=== PATIENT | male | born 1960 | race Caucasian/White ===

== ENCOUNTER 2017-02-05 09:23 | Day surgery (SDC) | payer OTHER ==
[2017-02-04 13:13] VITALS: BMI 33.7
[2017-02-05 11:19] VITALS: TEMP 98.2
[2017-02-05 13:20] VITALS: BP 130/60; PULSE 60
--- NOTE | 2017-02-06 13:44 | PATH ---
Surgical Pathology Report Patient Name: TAMIA BAILEY [facility]. Rec. #: [id number] /Age/Gender: 1960 (Age: 56) / M Account: [id number] Location: U-ENDOSCOPY Taken: 02/05/2017 Received: 02/05/2017 Reported: 02/06/2017 Physicians: Jakob Macdonald M.D. Specimen(s) Received A: BX CECAL POLYP B: BX CECUM C: BX PROXIMAL DESCENDING COLON POLYP Clinical History History of colon cancer, colon polyp, diarrhea Polyps, rule out microscopic colitis Final Diagnosis A. COLON, CECUM, POLYP, BIOPSY: FRAGMENTS OF TUBULAR ADENOMA. B. COLON, CECUM, BIOPSY: COLONIC MUCOSA WITH REACTIVE LYMPHOID AGGREGATE. NO EVIDENCE OF ACTIVE INFLAMMATION, SIGINIFICANT ARCHITECTURAL DISTORTION, GRANULOMATA OR DYSPLASIA; NO EVIDENCE OF MICROSCOPIC COLITIS. C. COLON, PROXIMAL DESCENDING, POLYP, BIOPSY: HYPERPLASTIC-TYPE POLYP WITH FOCAL FEATURES SUGGESTIVE OF SESSILE SERRATED ADENOMA. Electronically Signed [place] M.D. Gross Description A. Received in formalin, labeled "biopsy cecal polyp" are 4 baldwin, irregular portions of soft tissue ranging from 0.1-0.2 cm in greatest dimension. The specimens are submitted in toto in one cassette. B. Received in formalin, labeled "biopsy cecum" are 3 baldwin, irregular portions of soft tissue ranging from 0.2-0.3 cm in greatest dimension. The specimens are submitted in toto in one cassette. C. Received in formalin, labeled "biopsy proximal descending colon polyp" is a baldwin, irregular portion of soft tissue measuring 0.5 cm in greatest dimension. The specimen is submitted in toto in one cassette. 02/05/201702/05/2017
== END 2017-02-05 12:50 | disposition home or self-care (01) ==
LOC: JASU-ENDO 09:23
PROVIDERS: ATTEND Internal Medicine Gastroenterology
PROC: 0DBM8ZX Excision of Descending Colon, Via Natural or Artificial Opening Endoscopic, Diagnostic (ICD-10-PCS; 2017-02-05)
PROC: 0DBH8ZX Excision of Cecum, Via Natural or Artificial Opening Endoscopic, Diagnostic (ICD-10-PCS; principal; 2017-02-05 10:00)
DX: K25.9 Gastric ulcer, unspecified as acute or chronic, without hemorrhage or perforation (principal); Z85.038 Personal history of other malignant neoplasm of large intestine; K57.30 Diverticulosis of large intestine without perforation or abscess without bleeding; K64.8 Other hemorrhoids; D12.0 Benign neoplasm of cecum; D12.4 Benign neoplasm of descending colon
CPT/HCPCS: 36415; 87045; 87046; 87177; 87209; 88305-TC

== ENCOUNTER 2022-05-03 11:43 | Inpatient (IN) | payer OTHER ==
[2022-05-03] MEDS ORDERED: SODIUM CHLORIDE 2,926 ML IV ONE (12:41)
[2022-05-03] MEDS ORDERED: ACETAMINOPHEN 1000 MG/100 ML BAG IVPB ONE (13:10)
[2022-05-03] MEDS ORDERED: ACETAMINOPHEN INJECTION 100 ML IVPB ONE (13:15)
[2022-05-03 13:44] LABS: HEMOGLOBIN 11.2 G/dL (11.7-16.9); INR 1.09 (0.83-1.09); MCH 32.6 pg (25.7-33.7); MEAN CELL VOLUME 93.1 fl (80-96); MEAN PLT VOLUME 8.5 fl (7.5-11.1); PLATELET COUNT 371.3 10^3/uL (134-434); PROTHROMBIN TIME (PATIENT) 12.6 SEC (9.7-13.0); RBC 3.44 10^6/uL (4.00-5.60); RDW 13.8 % (11.9-15.9); WHITE BLOOD COUNT 29.2 10^3/uL (4.0-10.8)
[2022-05-03 13:47] LABS: ACTIVATED PTT 28.6 SECONDS (25.2-36.5)
[2022-05-03 13:51] LABS: ALBUMIN 3.4 g/dl (3.4-5.0); BILIRUBIN,TOTAL 1.8 mg/dl (0.2-1); CALCIUM 8.8 mg/dl (8.5-10); CREATININE 5.3 mg/dl (0.55-1.3); TOT PROT 6.2 g/dl (6.4-8.2)
[2022-05-03] MEDS ORDERED: VANCOMYCIN 1 GM in D5W (PRE-DOCKED) 1,000 MG/250 ML IVPB ONE (14:18)
[2022-05-03] MEDS ORDERED: PIPERACILLIN/TAZOB 3.375 GM 3.375 GM in DEXTROSE 5%-WATER - 50 ML IVPB ONE (14:18)
[2022-05-03] MEDS ORDERED: VANCOMYCIN 1,000 MG VIAL (RESTRICTED TO ID ONLY) ONE (14:22)
[2022-05-03] MEDS ORDERED: PIPERACILLIN/TAZOBACTAM 3.375 GM VIAL IVPB ONE (14:22)
[2022-05-03 15:54] LABS: VENOUS BASE EXCESS -11.5 mmol/L (-2-2); VENOUS O2 SATURATION 30.8 % (70-80); VENOUS PCO2 38.2 mmHg (38-52); VENOUS PH 7.223 (7.310-7.410)
[2022-05-03 17:13] LABS: HEMATOCRIT 24.1 % (35.4-49); HEMOGLOBIN 8.4 G/dL (11.7-16.9); MCH 32.3 pg (25.7-33.7); MCHC 34.9 g/dl (32.0-35.9); MEAN CELL VOLUME 92.6 fl (80-96); MEAN PLT VOLUME 7.8 fl (7.5-11.1); PLATELET COUNT 190.8 10^3/uL (134-434); RDW 13.9 % (11.9-15.9); WHITE BLOOD COUNT 14.3 10^3/uL (4.0-10.8)
[2022-05-03] MEDS: SODIUM CHLORIDE 1,000 ML IV SCH (18:32)
[2022-05-03 19:07] LABS: CALCIUM 7.7 mg/dl (8.5-10); CREATININE 4.9 mg/dl (0.55-1.3)
[2022-05-03 19:25] LABS: CREATININE, URINE RANDOM 305.8 mg/dL
[2022-05-03] MEDS ORDERED: ACETAMINOPHEN 325 MG TABLET (FP) PO PRN (19:40)
[2022-05-03] MEDS ORDERED: SODIUM CHLORIDE 1,000 ML IV SCH (20:00)
[2022-05-03 20:20] LABS: LACTIC ACID 2.5 mmol/L (0.4-2.0)
[2022-05-03] MEDS ORDERED: PIPERACILLIN/TAZOB 2.25 GM 2.25 GM in DEXTROSE 5%-WATER - 50 ML IVPB SCH (21:00)
[2022-05-03] MEDS ORDERED: ATORVASTATIN CA 10 MG TABLET (FP) PO SCH (22:00)
[2022-05-04] MEDS: PIPERACILLIN/TAZOB 2.25 GM 2.25 GM in DEXTROSE 5%-WATER - 50 ML IVPB SCH ×5 (01:13→17:30)
[2022-05-04] MEDS: HEPARIN NA (PORCINE) 5,000 UNITS/ML 1ML VIAL SQ SCH ×2 (01:13→09:17)
[2022-05-04] MEDS: DIVALPROEX NA *ER* EXTEND REL 500 MG TABLET.SA (FP) PO SCH (01:23)
[2022-05-04] MEDS ORDERED: ALBUTEROL SO4 2.5/IPRATROPIUM 0.5 INH SOL 3 ML VIAL.NEB. NEB PRN (03:30)
[2022-05-04] MEDS ORDERED: PIPERACILLIN/TAZOBACTAM 2.25 GM VIAL IVPB ONE ×2 (05:47→13:33)
[2022-05-04] MEDS: LEVOTHYROXINE NA 112 MCG TABLET (FP) PO SCH (06:44)
[2022-05-04] MEDS: ALBUTEROL SO4 2.5/IPRATROPIUM 0.5 INH SOL 3 ML VIAL.NEB. NEB SCH ×4 (09:00→20:40)
[2022-05-04 09:10] LABS: HEMOGLOBIN 8.6 GM/dL (11.7-16.9); MCH 31.8 pg (25.7-33.7); MCHC 34.6 g/dl (32.0-35.9); MEAN CELL VOLUME 91.8 fl (80-96); MEAN PLT VOLUME 8.4 fl (7.5-11.1); PLATELET COUNT 300 10^3/uL (134-434); RBC 2.72 M/mm3 (4.00-5.60); RDW 13.8 % (11.9-15.9); WHITE BLOOD COUNT 25.8 K/mm3 (4.0-10.0)
[2022-05-04 09:20] LABS: BLOOD UREA NITROGEN 75.6 mg/dL (7-18); CALCIUM 7.9 mg/dL (8.5-10.1)
[2022-05-04 09:21] LABS: ALBUMIN 2.5 g/dl (3.4-5.0); MAGNESIUM 1.8 mg/dL (1.8-2.4)
[2022-05-04 09:22] LABS: PHOSPHOROUS 5.1 mg/dL (2.5-4.9)
[2022-05-04 09:24] LABS: BILIRUBIN,TOTAL 1.9 mg/dL (0.2-1); CREATININE 5.9 mg/dL (0.55-1.3); TOT PROT 5.4 g/dl (6.4-8.2)
[2022-05-04 09:47] LABS: ANISOCYTOSIS 1+; MACROCYTOSIS 0
[2022-05-04] MEDS ORDERED: ALLOPURINOL 100 MG TABLET (FP) PO SCH (10:00)
[2022-05-04] MEDS ORDERED: FENOFIBRIC ACID 135 MG CAP PO SCH (10:00)
[2022-05-04] MEDS ORDERED: amLODIPine BESYLATE 10 MG TABLET (FP) PO SCH (10:00)
[2022-05-04] MEDS ORDERED: BENZTROPINE MESYLATE 1 MG TABLET PO SCH (10:00)
[2022-05-04 11:52] LABS: HEMATOCRIT 29.2 % (35.4-49); HEMOGLOBIN 9.6 GM/dL (11.7-16.9); MCH 31.1 pg (25.7-33.7); MCHC 32.9 g/dl (32.0-35.9); MEAN CELL VOLUME 94.6 fl (80-96); MEAN PLT VOLUME 8.8 fl (7.5-11.1); PLATELET COUNT 376 10^3/uL (134-434); RBC 3.09 M/mm3 (4.00-5.60); RDW 14.4 % (11.9-15.9)
[2022-05-04 12:10] LABS: WHITE BLOOD COUNT 33.7 K/mm3 (4.0-10.0)
[2022-05-04 13:22] LABS: ANISOCYTOSIS 0; MACROCYTOSIS 0
[2022-05-04] MEDS ORDERED: PANTOPRAZOLE SODIUM 40 MG in SODIUM CHLORIDE 100 ML IVPUSH SCH (13:45)
[2022-05-04 14:57] LABS: ARTERIAL BLD GAS O2 SATURATION 94.1 % (95-98); ARTERIAL BLOOD GAS BASE EXCESS -11.5 mmol/L (-2-2); ARTERIAL BLOOD GAS PO2 74.3 mmHg (80-100); ARTERIAL BLOOD GAS pH 7.313 (7.350-7.450)
[2022-05-04 15:00] LABS: ALLENS TEST POSITIVE
[2022-05-04] MEDS: SODIUM CHLORIDE 1,000 ML IV SCH (17:18)
[2022-05-04] MEDS ORDERED: ENOXAPARIN NA (PORCINE) 100 MG/1 ML DISP.SYRIN SQ SCH (18:00)
[2022-05-04] MEDS ORDERED: DEXMEDETOMIDINE PREMIX 400 MCG/100 ML BAG IVPB SCH (18:30)
[2022-05-04] MEDS ORDERED: SODIUM CHLORIDE 1,000 ML IV STA (18:38)
[2022-05-04] MEDS ORDERED: SODIUM CHLORIDE 1,000 ML IV SCH (18:45)
[2022-05-04] MEDS ORDERED: VASOPRESSIN 20 UNITS/ML VIAL IV ONE (18:51)
[2022-05-04] MEDS ORDERED: NOREPINEPHRINE BITARTRATE 4 MG/4 ML ML IV ONE ×2 (18:51→18:53)
[2022-05-04] MEDS: VASOPRESSIN 40 UNITS/100 ML BAG IV SCH (19:05)
[2022-05-04] MEDS: NOREPINEPHRINE BITARTRATE 16,000 MCG in SODIUM CHLORIDE 484 ML IV SCH (19:15)
[2022-05-04] MEDS ORDERED: ROCURONIUM BROMIDE 50 MG/5 ML VIAL ONE (19:39)
[2022-05-04] MEDS ORDERED: ROCURONIUM BROMIDE 50 MG/5 ML VIAL IV ONE (19:39)
[2022-05-04 20:53] LABS: ARTERIAL BLD GAS O2 SATURATION 83.7 % (95-98); ARTERIAL BLOOD GAS BASE EXCESS -19.8 mmol/L (-2-2); ARTERIAL BLOOD GAS PO2 77.8 mmHg (80-100)
[2022-05-04 20:58] LABS: ALLENS TEST POSITIVE
[2022-05-04 20:59] LABS: VENT MODE A/C; VENT RATE 12
[2022-05-04] MEDS ORDERED: PIPERACILLIN/TAZOB 2.25 GM 2.25 GM in DEXTROSE 5%-WATER - 50 ML IVPB SCH (21:00)
[2022-05-04 21:01] LABS: ARTERIAL BLOOD GAS pH 6.906 (7.350-7.450)
[2022-05-04] MEDS ORDERED: SODIUM BICARBONATE 8.4% 50 MEQ/50 ML DISP.SYRIN IVPUSH STA (21:01)
[2022-05-04] MEDS ORDERED: SODIUM BICARBONATE 8.4% - 50 ML ONE (21:02)
[2022-05-04] MEDS ORDERED: WATER IVPB STA (21:05)
[2022-05-04] MEDS ORDERED: GENTAMICIN IVPB STA (21:05)
[2022-05-04] MEDS ORDERED: DEXTROSE 5% IVPB STA (21:05)
[2022-05-04] MEDS ORDERED: MEROPENEM 1 GM in DEXTROSE 5%-WATER 100 ML IVPB SCH (21:15)
[2022-05-04 21:22] LABS: BASO % 0.4 % (0-2.0); HEMATOCRIT 21.1 % (35.4-49); HEMOGLOBIN 7.3 GM/dL (11.7-16.9); LYMPH % 13.3 % (8-40); MCH 32.4 pg (25.7-33.7); MCHC 34.6 g/dl (32.0-35.9); MEAN CELL VOLUME 93.8 fl (80-96); NEUT % 79.3 % (42.8-82.8); PLATELET COUNT 504 10^3/uL (134-434); RBC 2.25 M/mm3 (4.00-5.60); RDW 14.2 % (11.9-15.9)
[2022-05-04 21:48] LABS: CHLORIDE 109 mmol/L (98-107); SODIUM 144 mmol/L (136-145)
[2022-05-04 21:51] LABS: GLUCOSE,RANDOM 178 mg/dL (74-106)
[2022-05-04 21:52] LABS: ANION GAP 15 MMOL/L (8-16); BLOOD UREA NITROGEN 78.8 mg/dL (7-18); CALCIUM 7.4 mg/dL (8.5-10.1); CO2 20 mmol/L (21-32); MAGNESIUM 2.2 mg/dL (1.8-2.4)
[2022-05-04 21:53] LABS: SGPT/ALT 373 U/L (13-61)
[2022-05-04 21:54] LABS: CREATININE 7.1 mg/dL (0.55-1.3); SGOT/AST 672 U/L (15-37)
[2022-05-04 21:55] LABS: BILIRUBIN,TOTAL 1.5 mg/dL (0.2-1); TOT PROT 4.7 g/dl (6.4-8.2)
[2022-05-04 21:56] LABS: ALK PHOS 58 U/L (45-117)
[2022-05-04] MEDS ORDERED: MUPIROCIN 2% TOPICAL OINTMENT FOR DECOLONIZATION NS SCH (22:00)
[2022-05-04] MEDS ORDERED: CHLORHEXIDINE GLUCONATE 4% CLEANSER FOR DECOLONIZATION TP SCH (22:00)
[2022-05-04 22:13] LABS: WHITE BLOOD COUNT 37.7 K/mm3 (4.0-10.0)
[2022-05-04 22:15] LABS: ANISOCYTOSIS 1+; PLATELET ESTIMATE INCREASED
[2022-05-04] MEDS: PROPOFOL 1,000,000 MCG/100 ML VIAL IVPB SCH (22:34)
[2022-05-04] MEDS: MEROPENEM 1 GM in DEXTROSE 5%-WATER 100 ML IVPB SCH (22:36)
[2022-05-04] MEDS: FENTANYL NS IVPB 500 MCG/100 ML BAG IVPB SCH (22:36)
[2022-05-04] MEDS: MUPIROCIN 2% TOPICAL OINTMENT FOR DECOLONIZATION NS SCH (22:37)
[2022-05-04] MEDS: CHLORHEXIDINE GLUCONATE 4% CLEANSER FOR DECOLONIZATION TP SCH (22:37)
[2022-05-04 22:39] LABS: LACTIC ACID 2.8 mmol/L (0.4-2.0)
[2022-05-04 22:40] LABS: PHOSPHOROUS 9.6 mg/dL (2.5-4.9)
[2022-05-04] MEDS ORDERED: HEPARIN NA (PORCINE) 5,000 UNITS/ML 1ML VIAL IVPUSH PRN (22:50)
[2022-05-04] MEDS: HEPARIN INFUSION - 25,000 UNITS/500 ML INFUS.BAG IVPB SCH (23:43)
[2022-05-05 00:22] LABS: ARTERIAL BLD GAS O2 SATURATION 80.8 % (95-98); ARTERIAL BLOOD GAS BASE EXCESS -14.5 mmol/L (-2-2); ARTERIAL BLOOD GAS PO2 59.7 mmHg (80-100)
[2022-05-05 00:23] LABS: ALLENS TEST POSITIVE; PT'S TEMP NO
[2022-05-05 00:24] LABS: VENT MODE A/C; VENT RATE 28
[2022-05-05 00:25] LABS: ARTERIAL BLOOD GAS pH 7.101 (7.350-7.450)
[2022-05-05] MEDS: PANTOPRAZOLE SODIUM 160 MG in SODIUM CHLORIDE 290 ML IVPB SCH ×4 (01:40→21:33)
[2022-05-05] MEDS: SODIUM BICARBONATE 8.4% - 150 MEQ in DEXTROSE 5%-WATER - 950 ML IVPB SCH ×2 (01:40→16:00)
[2022-05-05] MEDS: DIVALPROEX NA *ER* EXTEND REL 500 MG TABLET.SA (FP) PO SCH ×2 (01:40→21:29)
[2022-05-05 03:18] LABS: EPI CELLS >36 /uL (0-25.1); HYALINE CASTS 17 /uL (0-3.1); URINE APPEARANCE TURBID; URINE BILIRUBIN 1+ (NEGATIVE); URINE COLOR ORANGE; URINE GLUCOSE (UA) NEGATIVE (NEGATIVE); URINE KETONE NEGATIVE (NEGATIVE); URINE LEUK ESTERASE 2+ (NEGATIVE); URINE NITRITE POSITIVE (NEGATIVE); URINE PROTEIN 2+ (NEGATIVE); URINE WBC 358 /uL (0-25.8)
[2022-05-05] MEDS: ALBUTEROL SO4 2.5/IPRATROPIUM 0.5 INH SOL 3 ML VIAL.NEB. NEB SCH ×6 (03:41→20:05)
[2022-05-05 05:54] LABS: ARTERIAL BLD GAS O2 SATURATION 96.6 % (95-98); ARTERIAL BLOOD GAS BASE EXCESS -9.5 mmol/L (-2-2); ARTERIAL BLOOD GAS PO2 101.9 mmHg (80-100); ARTERIAL BLOOD GAS pH 7.226 (7.350-7.450)
[2022-05-05] MEDS ORDERED: HEPARIN NA (PORCINE) 5,000 UNITS/ML 1ML VIAL SQ SCH (06:00)
[2022-05-05 06:08] LABS: ALLENS TEST POSITIVE
[2022-05-05 06:09] LABS: VENT MODE A/C; VENT RATE 28
[2022-05-05] MEDS: FENTANYL NS IVPB 500 MCG/100 ML BAG IVPB SCH ×3 (06:31→17:26)
[2022-05-05] MEDS: LEVOTHYROXINE NA 112 MCG TABLET (FP) PO SCH (06:34)
[2022-05-05] MEDS ORDERED: SODIUM BICARBONATE 8.4% 50 MEQ/50 ML DISP.SYRIN IVPUSH STA (06:57)
[2022-05-05 07:24] LABS: HEMATOCRIT 21.8 % (35.4-49); HEMOGLOBIN 7.2 GM/dL (11.7-16.9); MCH 31.4 pg (25.7-33.7); MEAN CELL VOLUME 95.1 fl (80-96); MEAN PLT VOLUME 8.7 fl (7.5-11.1); PLATELET COUNT 442 10^3/uL (134-434); RBC 2.29 M/mm3 (4.00-5.60); RDW 14.3 % (11.9-15.9)
[2022-05-05 07:33] LABS: WHITE BLOOD COUNT 34.3 K/mm3 (4.0-10.0)
[2022-05-05 07:41] LABS: CHLORIDE 107 mmol/L (98-107); SODIUM 140 mmol/L (136-145)
[2022-05-05 07:43] LABS: CALCIUM 7.6 mg/dL (8.5-10.1)
[2022-05-05 07:44] LABS: ANION GAP 14 MMOL/L (8-16); BLOOD UREA NITROGEN 84.9 mg/dL (7-18); CO2 18 mmol/L (21-32); GLUCOSE,RANDOM 166 mg/dL (74-106); MAGNESIUM 2.1 mg/dL (1.8-2.4)
[2022-05-05 07:46] LABS: BILIRUBIN,DIRECT 1.4 mg/dL (0.0-0.2); CREATININE 7.4 mg/dL (0.55-1.3)
[2022-05-05 07:47] LABS: SGPT/ALT 612 U/L (13-61)
[2022-05-05 07:48] LABS: BILIRUBIN,TOTAL 1.9 mg/dL (0.2-1); TOT PROT 4.7 g/dl (6.4-8.2)
[2022-05-05 07:49] LABS: URINE RBC 3172.5 /uL (0-23.9)
[2022-05-05 07:49] LABS: ALK PHOS 39 U/L (45-117)
[2022-05-05 07:50] LABS: N-TERMINAL BNP 4349.5 pg/ml (5-125)
[2022-05-05] MEDS ORDERED: ARIPiprazole 5 MG TABLET ONE (08:13)
[2022-05-05] MEDS ORDERED: INSULIN REGULAR HUMAN 100 UNITS/ML *VIAL IVPUSH STA (08:14)
[2022-05-05 08:19] LABS: PHOSPHOROUS 8.4 mg/dL (2.5-4.9); SGOT/AST 1137 U/L (15-37)
[2022-05-05] MEDS ORDERED: DEXTROSE 50%-WATER - 25 GM/50 ML VIAL IVPUSH ONE (08:30)
[2022-05-05] MEDS ORDERED: CALCIUM GLUCONATE 10% - 1,000 MG/10 ML VIAL IVPB ONE (08:30)
[2022-05-05] MEDS: DOPAMINE 400 MG/D5W - 400,000 MCG/250 ML INFUS.BAG IVPB SCH ×2 (08:55→21:30)
[2022-05-05] MEDS: MEROPENEM 1 GM in DEXTROSE 5%-WATER 100 ML IVPB SCH (09:09)
[2022-05-05] MEDS: ARIPiprazole 10 MG TABLET PO SCH (09:32)
[2022-05-05] MEDS: MUPIROCIN 2% TOPICAL OINTMENT FOR DECOLONIZATION NS SCH ×2 (09:33→21:29)
[2022-05-05] MEDS ORDERED: DEXTROSE 50%-WATER 25 GM/50 ML DISP.SYRIN ONE (09:35)
[2022-05-05 09:44] LABS: ANISOCYTOSIS 2+; MACROCYTOSIS 0; OVALOCYTE 1+
[2022-05-05] MEDS ORDERED: ACETAMINOPHEN 325 MG TABLET (FP) PO PRN (09:44)
[2022-05-05] MEDS ORDERED: MIDAZOLAM HCL 5 MG/1 ML Single Dose Vial ONE (10:15)
[2022-05-05 12:15] LABS: CHOLESTEROL 66 mg/dL (50-200); TRIGLYCERIDES 261 mg/dL (0-150)
[2022-05-05 12:16] LABS: LDL CHOLESTEROL (ONLY SJRH) 14 mg/dL (5-100)
[2022-05-05 12:17] LABS: HDL CHOLESTEROL 10 mg/dL (40-60)
[2022-05-05] MEDS ORDERED: MIDAZOLAM HCL 5 MG/1 ML Single Dose Vial IVPUSH STA (12:23)
[2022-05-05] MEDS ORDERED: PANTOPRAZOLE SODIUM 40 MG VIAL IVPUSH SCH (14:00)
[2022-05-05] MEDS ORDERED: SODIUM CHLORIDE 250 ML IV PRN (14:15)
[2022-05-05] MEDS: ALBUMIN HUMAN 25% 12.5 GM/50 ML VIAL IV SCH ×4 (14:37→15:44)
[2022-05-05] MEDS ORDERED: LEVOTHYROXINE SODIUM 100 MCG VIAL IVPUSH STA (14:44)
[2022-05-05] MEDS: PIPERACILLIN/TAZOB 2.25 GM 2.25 GM in DEXTROSE 5%-WATER - 50 ML IVPB SCH (17:25)
[2022-05-05] MEDS: PROPOFOL 1,000,000 MCG/100 ML VIAL IVPB SCH ×2 (17:25→20:33)
[2022-05-05] MEDS: NOREPINEPHRINE BITARTRATE 16,000 MCG in SODIUM CHLORIDE 484 ML IV SCH (20:32)
[2022-05-05] MEDS: VASOPRESSIN 40 UNITS/100 ML BAG IV SCH ×2 (20:33→21:32)
[2022-05-05] MEDS: CHLORHEXIDINE GLUCONATE 4% CLEANSER FOR DECOLONIZATION TP SCH (21:29)
[2022-05-05] MEDS: BENZTROPINE MESYLATE 1 MG TABLET PO SCH (21:29)
[2022-05-05] MEDS: ATORVASTATIN CA 10 MG TABLET (FP) PO SCH (21:29)
[2022-05-05 23:26] LABS: CALCIUM 7.1 mg/dL (8.5-10.1)
[2022-05-05 23:27] LABS: ALBUMIN 1.7 g/dl (3.4-5.0); BLOOD UREA NITROGEN 61.4 mg/dL (7-18)
[2022-05-05 23:30] LABS: CREATININE 5.4 mg/dL (0.55-1.3)
[2022-05-05 23:31] LABS: BILIRUBIN,TOTAL 2.4 mg/dL (0.2-1); TOT PROT 4.3 g/dl (6.4-8.2)
[2022-05-05] MEDS: HEPARIN NA (PORCINE) 5,000 UNITS/ML 1ML VIAL IVPUSH PRN (23:59)
[2022-05-06] MEDS: HEPARIN INFUSION - 25,000 UNITS/500 ML INFUS.BAG IVPB SCH ×2 (00:32→10:22)
[2022-05-06] MEDS: SODIUM BICARBONATE 8.4% - 150 MEQ in DEXTROSE 5%-WATER - 950 ML IVPB SCH ×3 (00:32→21:21)
[2022-05-06] MEDS: PIPERACILLIN/TAZOB 2.25 GM 2.25 GM in DEXTROSE 5%-WATER - 50 ML IVPB SCH ×3 (01:04→17:26)
[2022-05-06] MEDS: FENTANYL NS IVPB 500 MCG/100 ML BAG IVPB SCH (01:12)
[2022-05-06] MEDS: PROPOFOL 1,000,000 MCG/100 ML VIAL IVPB SCH ×3 (01:13→21:44)
[2022-05-06] MEDS: ALBUTEROL SO4 2.5/IPRATROPIUM 0.5 INH SOL 3 ML VIAL.NEB. NEB SCH ×6 (04:00→20:05)
[2022-05-06] MEDS: NOREPINEPHRINE BITARTRATE 16,000 MCG in SODIUM CHLORIDE 484 ML IV SCH ×2 (04:05→21:44)
[2022-05-06] MEDS: PANTOPRAZOLE SODIUM 160 MG in SODIUM CHLORIDE 290 ML IVPB SCH ×2 (04:57→17:26)
[2022-05-06 06:50] LABS: HEMATOCRIT 18.5 % (35.4-49); MCH 31.6 pg (25.7-33.7); MCHC 35.1 g/dl (32.0-35.9); MEAN PLT VOLUME 8.2 fl (7.5-11.1); PLATELET COUNT 145 10^3/uL (134-434); RBC 2.05 M/mm3 (4.00-5.60); RDW 14.8 % (11.9-15.9); WHITE BLOOD COUNT 5.3 K/mm3 (4.0-10.0)
[2022-05-06] MEDS ORDERED: LEVOTHYROXINE NA 112 MCG TABLET (FP) PO SCH (07:00)
[2022-05-06 07:07] LABS: HEMOGLOBIN 6.5 GM/dL (11.7-16.9)
[2022-05-06 07:21] LABS: ALBUMIN 1.7 g/dl (3.4-5.0)
[2022-05-06 07:23] LABS: CALCIUM 7.3 mg/dL (8.5-10.1)
[2022-05-06 07:24] LABS: CREATININE 5.5 mg/dL (0.55-1.3)
[2022-05-06 07:25] LABS: BILIRUBIN,TOTAL 2.8 mg/dL (0.2-1); TOT PROT 4.3 g/dl (6.4-8.2)
[2022-05-06] MEDS: ARIPiprazole 10 MG TABLET PO SCH (10:16)
[2022-05-06] MEDS: LEVOTHYROXINE SODIUM 100 MCG VIAL IVPUSH SCH (10:25)
[2022-05-06 15:14] LABS: BASO % 0.3 % (0-2.0); EOS % 0.8 % (0-4.5); HEMATOCRIT 24.5 % (35.4-49); HEMOGLOBIN 8.8 GM/dL (11.7-16.9); MCH 32.3 pg (25.7-33.7); MEAN CELL VOLUME 89.5 fl (80-96); MEAN PLT VOLUME 7.7 fl (7.5-11.1); MONO % 5.3 % (3.8-10.2); NEUT % 76.6 % (42.8-82.8); PLATELET COUNT 133 10^3/uL (134-434); RBC 2.74 M/mm3 (4.00-5.60); RDW 14.3 % (11.9-15.9); WHITE BLOOD COUNT 6.2 K/mm3 (4.0-10.0)
[2022-05-06] MEDS: DOPAMINE 400 MG/D5W - 400,000 MCG/250 ML INFUS.BAG IVPB SCH (15:38)
[2022-05-06] MEDS: MUPIROCIN 2% TOPICAL OINTMENT FOR DECOLONIZATION NS SCH ×2 (15:38→21:20)
[2022-05-06] MEDS: HEPARIN NA (PORCINE) 5,000 UNITS/ML 1ML VIAL IVPUSH PRN (15:42)
[2022-05-06] MEDS: DIVALPROEX NA *ER* EXTEND REL 500 MG TABLET.SA (FP) PO SCH (21:09)
[2022-05-06] MEDS: ATORVASTATIN CA 10 MG TABLET (FP) PO SCH (21:20)
[2022-05-06] MEDS: BENZTROPINE MESYLATE 1 MG TABLET PO SCH (21:20)
[2022-05-06] MEDS: CHLORHEXIDINE GLUCONATE 4% CLEANSER FOR DECOLONIZATION TP SCH (21:20)
[2022-05-06 22:09] LABS: INR 1.16 (0.83-1.09); PROTHROMBIN TIME (PATIENT) 13.4 SEC (9.7-13.0)
[2022-05-07] MEDS: PANTOPRAZOLE SODIUM 160 MG in SODIUM CHLORIDE 290 ML IVPB SCH ×4 (00:15→21:29)
[2022-05-07] MEDS: HEPARIN INFUSION - 25,000 UNITS/500 ML INFUS.BAG IVPB SCH ×2 (00:15→23:32)
[2022-05-07] MEDS: SODIUM BICARBONATE 8.4% - 150 MEQ in DEXTROSE 5%-WATER - 950 ML IVPB SCH (00:15)
[2022-05-07] MEDS: PIPERACILLIN/TAZOB 2.25 GM 2.25 GM in DEXTROSE 5%-WATER - 50 ML IVPB SCH ×3 (01:04→17:33)
[2022-05-07] MEDS: PROPOFOL 1,000,000 MCG/100 ML VIAL IVPB SCH ×4 (02:00→21:29)
[2022-05-07] MEDS: ALBUTEROL SO4 2.5/IPRATROPIUM 0.5 INH SOL 3 ML VIAL.NEB. NEB SCH ×7 (04:00→23:20)
[2022-05-07] MEDS: FENTANYL NS IVPB 500 MCG/100 ML BAG IVPB SCH ×2 (05:35→14:30)
[2022-05-07] MEDS: DOPAMINE 400 MG/D5W - 400,000 MCG/250 ML INFUS.BAG IVPB SCH ×3 (06:26→17:38)
[2022-05-07 06:30] LABS: HEMATOCRIT 25.1 % (35.4-49); HEMOGLOBIN 8.8 GM/dL (11.7-16.9); MCH 31.4 pg (25.7-33.7); MCHC 35.2 g/dl (32.0-35.9); MEAN CELL VOLUME 89.3 fl (80-96); MEAN PLT VOLUME 7.9 fl (7.5-11.1); PLATELET COUNT 126 10^3/uL (134-434); RBC 2.81 M/mm3 (4.00-5.60); RDW 14.8 % (11.9-15.9); WHITE BLOOD COUNT 5.4 K/mm3 (4.0-10.0)
[2022-05-07 06:55] LABS: CALCIUM 7.7 mg/dL (8.5-10.1)
[2022-05-07 06:56] LABS: ALBUMIN 1.6 g/dl (3.4-5.0); MAGNESIUM 1.7 mg/dL (1.8-2.4)
[2022-05-07 06:58] LABS: BILIRUBIN,DIRECT 3.9 mg/dL (0.0-0.2); CREATININE 5.7 mg/dL (0.55-1.3)
[2022-05-07 06:59] LABS: PHOSPHOROUS 4.8 mg/dL (2.5-4.9)
[2022-05-07 07:00] LABS: BILIRUBIN,TOTAL 4.4 mg/dL (0.2-1); TOT PROT 4.4 g/dl (6.4-8.2)
[2022-05-07] MEDS ORDERED: MAGNESIUM SULF 50% (8.12 MEQ/2 ML-1 GM VIAL) IVPB ONE (07:55)
[2022-05-07] MEDS ORDERED: SODIUM CHLORIDE 250 ML IV PRN (08:29)
[2022-05-07] MEDS: ALBUMIN HUMAN 25% 12.5 GM/50 ML VIAL IV SCH ×4 (08:43→11:21)
[2022-05-07] MEDS: MUPIROCIN 2% TOPICAL OINTMENT FOR DECOLONIZATION NS SCH ×2 (09:00→21:29)
[2022-05-07] MEDS ORDERED: ARIPiprazole 5 MG TABLET ONE (10:03)
[2022-05-07] MEDS ORDERED: MAGNESIUM SULF 50% (8.12 MEQ/2 ML-1 GM VIAL) ONE (10:09)
[2022-05-07] MEDS: LEVOTHYROXINE SODIUM 100 MCG VIAL IVPUSH SCH (11:05)
[2022-05-07] MEDS: ARIPiprazole 10 MG TABLET PO SCH (11:05)
[2022-05-07] MEDS ORDERED: MAGNESIUM 1GM/D5W - 1 GM/100 ML IVPB IVPB ONE (11:56)
[2022-05-07] MEDS: NOREPINEPHRINE BITARTRATE 16,000 MCG in SODIUM CHLORIDE 484 ML IV SCH ×2 (12:37→21:29)
[2022-05-07 16:07] LABS: ARTERIAL BLD GAS O2 SATURATION 97.7 % (95-98); ARTERIAL BLOOD GAS BASE EXCESS 6.4 mmol/L (-2-2); ARTERIAL BLOOD GAS PO2 93.9 mmHg (80-100); ARTERIAL BLOOD GAS pH 7.501 (7.350-7.450)
[2022-05-07 16:16] LABS: VENT MODE A/C; VENT RATE 14
[2022-05-07] MEDS ORDERED: LACTATED RINGERS SOLUTION 1,000 ML/1,000 ML INFUS.BAG IV SCH (17:00)
[2022-05-07 21:21] LABS: EPI CELLS >36 /uL (0-25.1); HYALINE CASTS 7 /uL (0-3.1); URINE APPEARANCE TURBID; URINE BACTERIA 37 /uL (0-1359); URINE BILIRUBIN 1+ (NEGATIVE); URINE COLOR RED; URINE GLUCOSE (UA) NEGATIVE (NEGATIVE); URINE KETONE NEGATIVE (NEGATIVE); URINE LEUK ESTERASE 2+ (NEGATIVE); URINE NITRITE NEGATIVE (NEGATIVE); URINE PROTEIN 2+ (NEGATIVE); URINE WBC 288 /uL (0-25.8)
[2022-05-07] MEDS: BENZTROPINE MESYLATE 1 MG TABLET PO SCH (21:30)
[2022-05-07] MEDS: DIVALPROEX NA *ER* EXTEND REL 500 MG TABLET.SA (FP) PO SCH ×2 (21:30→21:33)
[2022-05-07] MEDS: CHLORHEXIDINE GLUCONATE 4% CLEANSER FOR DECOLONIZATION TP SCH (21:30)
[2022-05-07] MEDS: ATORVASTATIN CA 10 MG TABLET (FP) PO SCH (21:31)
[2022-05-07 21:55] LABS: URINE RBC 29260.8 /uL (0-23.9)
[2022-05-08] MEDS: PIPERACILLIN/TAZOB 2.25 GM 2.25 GM in DEXTROSE 5%-WATER - 50 ML IVPB SCH ×3 (01:13→18:00)
[2022-05-08] MEDS: ALBUTEROL SO4 2.5/IPRATROPIUM 0.5 INH SOL 3 ML VIAL.NEB. NEB SCH ×5 (04:45→20:05)
[2022-05-08 06:56] LABS: HEMATOCRIT 22.7 % (35.4-49); HEMOGLOBIN 7.9 GM/dL (11.7-16.9); MCH 31.7 pg (25.7-33.7); MCHC 34.7 g/dl (32.0-35.9); MEAN CELL VOLUME 91.3 fl (80-96); MEAN PLT VOLUME 7.5 fl (7.5-11.1); PLATELET COUNT 86 10^3/uL (134-434); RBC 2.49 M/mm3 (4.00-5.60); RDW 14.8 % (11.9-15.9); WHITE BLOOD COUNT 4.3 K/mm3 (4.0-10.0)
[2022-05-08 07:19] LABS: ALBUMIN 1.5 g/dl (3.4-5.0); BLOOD UREA NITROGEN 46.3 mg/dL (7-18); CALCIUM 7.8 mg/dL (8.5-10.1)
[2022-05-08 07:22] LABS: CREATININE 4.2 mg/dL (0.55-1.3)
[2022-05-08 07:24] LABS: BILIRUBIN,TOTAL 5.3 mg/dL (0.2-1); TOT PROT 4.2 g/dl (6.4-8.2)
[2022-05-08 07:55] LABS: MAGNESIUM 2.2 mg/dL (1.8-2.4)
[2022-05-08] MEDS: DOPAMINE 400 MG/D5W - 400,000 MCG/250 ML INFUS.BAG IVPB SCH (08:00)
[2022-05-08] MEDS ORDERED: ARIPiprazole 5 MG TABLET ONE (09:07)
[2022-05-08] MEDS: PROPOFOL 1,000,000 MCG/100 ML VIAL IVPB SCH ×2 (09:19→21:06)
[2022-05-08] MEDS: PANTOPRAZOLE SODIUM 160 MG in SODIUM CHLORIDE 290 ML IVPB SCH (09:20)
[2022-05-08] MEDS: ARIPiprazole 10 MG TABLET PO SCH (10:22)
[2022-05-08] MEDS: LEVOTHYROXINE SODIUM 100 MCG VIAL IVPUSH SCH (10:27)
[2022-05-08] MEDS: MUPIROCIN 2% TOPICAL OINTMENT FOR DECOLONIZATION NS SCH ×2 (10:28→21:07)
[2022-05-08] MEDS: NOREPINEPHRINE BITARTRATE 16,000 MCG in SODIUM CHLORIDE 484 ML IV SCH (21:06)
[2022-05-08] MEDS: DIVALPROEX NA *ER* EXTEND REL 500 MG TABLET.SA (FP) PO SCH (21:07)
[2022-05-08] MEDS: BENZTROPINE MESYLATE 1 MG TABLET PO SCH (21:07)
[2022-05-08] MEDS: ATORVASTATIN CA 10 MG TABLET (FP) PO SCH (21:08)
[2022-05-08] MEDS: PANTOPRAZOLE SODIUM 40 MG VIAL IVPUSH SCH (21:08)
[2022-05-08] MEDS: CHLORHEXIDINE GLUCONATE 4% CLEANSER FOR DECOLONIZATION TP SCH (21:08)
[2022-05-09] MEDS: ALBUTEROL SO4 2.5/IPRATROPIUM 0.5 INH SOL 3 ML VIAL.NEB. NEB SCH ×6 (02:15→23:01)
[2022-05-09] MEDS: PIPERACILLIN/TAZOB 2.25 GM 2.25 GM in DEXTROSE 5%-WATER - 50 ML IVPB SCH ×3 (02:57→18:18)
[2022-05-09 07:32] LABS: BASO % 0.4 % (0-2.0); EOS % 0.8 % (0-4.5); HEMATOCRIT 24.2 % (35.4-49); HEMOGLOBIN 8.1 GM/dL (11.7-16.9); LYMPH % 18.7 % (8-40); MCHC 33.6 g/dl (32.0-35.9); MEAN CELL VOLUME 92.4 fl (80-96); MEAN PLT VOLUME 7.9 fl (7.5-11.1); MONO % 11.1 % (3.8-10.2); PLATELET COUNT 95 10^3/uL (134-434); RBC 2.62 M/mm3 (4.00-5.60); RDW 14.9 % (11.9-15.9); WHITE BLOOD COUNT 3.6 K/mm3 (4.0-10.0)
[2022-05-09 07:55] LABS: ALBUMIN 1.6 g/dl (3.4-5.0); CALCIUM 8.1 mg/dL (8.5-10.1)
[2022-05-09 07:56] LABS: BLOOD UREA NITROGEN 52.5 mg/dL (7-18)
[2022-05-09 07:58] LABS: CREATININE 4.1 mg/dL (0.55-1.3)
[2022-05-09 08:00] LABS: BILIRUBIN,TOTAL 4.6 mg/dL (0.2-1); TOT PROT 4.3 g/dl (6.4-8.2)
[2022-05-09] MEDS ORDERED: ARIPiprazole 5 MG TABLET ONE (08:01)
[2022-05-09] MEDS: SODIUM CHLORIDE 1,000 ML IV SCH ×2 (09:27→22:00)
[2022-05-09] MEDS: MUPIROCIN 2% TOPICAL OINTMENT FOR DECOLONIZATION NS SCH (09:27)
[2022-05-09] MEDS: ARIPiprazole 10 MG TABLET PO SCH (09:27)
[2022-05-09] MEDS: LEVOTHYROXINE SODIUM 100 MCG VIAL IVPUSH SCH (09:28)
[2022-05-09] MEDS: PANTOPRAZOLE SODIUM 40 MG VIAL IVPUSH SCH (09:28)
[2022-05-09] MEDS: HEPARIN NA (PORCINE) 5,000 UNITS/ML 1ML VIAL SQ SCH ×2 (15:08→21:14)
[2022-05-09] MEDS: CHLORHEXIDINE GLUCONATE 4% CLEANSER FOR DECOLONIZATION TP SCH (21:13)
[2022-05-09] MEDS: DIVALPROEX NA *ER* EXTEND REL 500 MG TABLET.SA (FP) PO SCH (21:14)
[2022-05-09] MEDS: ATORVASTATIN CA 10 MG TABLET (FP) PO SCH (21:14)
[2022-05-09] MEDS: BENZTROPINE MESYLATE 1 MG TABLET PO SCH (21:17)
[2022-05-10] MEDS: PIPERACILLIN/TAZOB 2.25 GM 2.25 GM in DEXTROSE 5%-WATER - 50 ML IVPB SCH ×3 (01:05→19:56)
[2022-05-10] MEDS: ALBUTEROL SO4 2.5/IPRATROPIUM 0.5 INH SOL 3 ML VIAL.NEB. NEB SCH ×6 (05:05→19:52)
[2022-05-10 07:32] LABS: BLOOD UREA NITROGEN 59.7 mg/dL (7-18)
[2022-05-10 07:33] LABS: ALBUMIN 1.8 g/dl (3.4-5.0)
[2022-05-10 07:36] LABS: CREATININE 3.4 mg/dL (0.55-1.3)
[2022-05-10 07:37] LABS: BILIRUBIN,TOTAL 3.9 mg/dL (0.2-1); TOT PROT 4.8 g/dl (6.4-8.2)
[2022-05-10 07:44] LABS: HEMATOCRIT 28.7 % (35.4-49); MCH 32.5 pg (25.7-33.7); MEAN PLT VOLUME 8.7 fl (7.5-11.1); PLATELET COUNT 211 10^3/uL (134-434); RBC 3.09 M/mm3 (4.00-5.60); RDW 15.3 % (11.9-15.9)
[2022-05-10 07:45] LABS: WHITE BLOOD COUNT 10.5 K/mm3 (4.0-10.0)
[2022-05-10] MEDS: SODIUM CHLORIDE 1,000 ML IV SCH (08:15)
[2022-05-10] MEDS ORDERED: ARIPiprazole 5 MG TABLET ONE (08:41)
[2022-05-10] MEDS ORDERED: PANTOPRAZOLE SODIUM 40 MG VIAL IVPUSH SCH (10:00)
[2022-05-10] MEDS: LEVOTHYROXINE SODIUM 100 MCG VIAL IVPUSH SCH (10:07)
[2022-05-10] MEDS: HEPARIN NA (PORCINE) 5,000 UNITS/ML 1ML VIAL SQ SCH ×2 (10:07→21:12)
[2022-05-10 10:08] LABS: ANISOCYTOSIS 1+; MACROCYTOSIS 1+
[2022-05-10] MEDS: ARIPiprazole 10 MG TABLET PO SCH (13:18)
[2022-05-10] MEDS ORDERED: SODIUM CHLORIDE 1,000 ML IV SCH (15:07)
[2022-05-10 15:44] VITALS: BMI 33.4
[2022-05-10] MEDS ORDERED: ACETAMINOPHEN 325 MG TABLET (FP) PO PRN (17:44)
[2022-05-10] MEDS: ATORVASTATIN CA 10 MG TABLET (FP) PO SCH (21:12)
[2022-05-10] MEDS: BENZTROPINE MESYLATE 1 MG TABLET PO SCH (21:13)
[2022-05-10] MEDS: DIVALPROEX NA *ER* EXTEND REL 500 MG TABLET.SA (FP) PO SCH (21:13)
[2022-05-11] MEDS: ALBUTEROL SO4 2.5/IPRATROPIUM 0.5 INH SOL 3 ML VIAL.NEB. NEB SCH ×6 (00:05→20:05)
[2022-05-11] MEDS: PIPERACILLIN/TAZOB 2.25 GM 2.25 GM in DEXTROSE 5%-WATER - 50 ML IVPB SCH ×3 (01:09→17:15)
[2022-05-11] MEDS: ARIPiprazole 10 MG TABLET PO SCH (09:39)
[2022-05-11] MEDS: PANTOPRAZOLE SODIUM 40 MG VIAL IVPUSH SCH (09:40)
[2022-05-11] MEDS: LEVOTHYROXINE SODIUM 100 MCG VIAL IVPUSH SCH (09:40)
[2022-05-11] MEDS: HEPARIN NA (PORCINE) 5,000 UNITS/ML 1ML VIAL SQ SCH ×2 (09:40→21:21)
[2022-05-11] MEDS ORDERED: FUROSEMIDE 40 MG/4 ML INJECTABLE VIAL IVPUSH ONE (12:03)
[2022-05-11 15:21] LABS: BASO % 0.8 % (0-2.0); EOS % 2.8 % (0-4.5); HEMATOCRIT 32.1 % (35.4-49); HEMOGLOBIN 10.6 GM/dL (11.7-16.9); LYMPH % 11.4 % (8-40); MCH 30.4 pg (25.7-33.7); MEAN CELL VOLUME 92.2 fl (80-96); MEAN PLT VOLUME 7.9 fl (7.5-11.1); MONO % 10.2 % (3.8-10.2); NEUT % 74.8 % (42.8-82.8); PLATELET COUNT 422 10^3/uL (134-434); RBC 3.48 M/mm3 (4.00-5.60); RDW 15.1 % (11.9-15.9); WHITE BLOOD COUNT 12.4 K/mm3 (4.0-10.0)
[2022-05-11 15:41] LABS: CALCIUM 8.3 mg/dL (8.5-10.1)
[2022-05-11 15:45] LABS: CREATININE 3.2 mg/dL (0.55-1.3)
[2022-05-11] MEDS: metoPROLOL SUCCINATE 25 MG TAB.SR.24H (FP) PO SCH (17:15)
[2022-05-11] MEDS: DIVALPROEX NA *ER* EXTEND REL 500 MG TABLET.SA (FP) PO SCH (21:21)
[2022-05-11] MEDS: ATORVASTATIN CA 10 MG TABLET (FP) PO SCH (21:21)
[2022-05-11] MEDS: BENZTROPINE MESYLATE 1 MG TABLET PO SCH (21:22)
[2022-05-12] MEDS: PIPERACILLIN/TAZOB 2.25 GM 2.25 GM in DEXTROSE 5%-WATER - 50 ML IVPB SCH ×2 (01:04→10:08)
[2022-05-12] MEDS: ALBUTEROL SO4 2.5/IPRATROPIUM 0.5 INH SOL 3 ML VIAL.NEB. NEB SCH ×5 (03:08→16:25)
[2022-05-12 09:14] LABS: BASO % 0.6 % (0-2.0); HEMATOCRIT 28.1 % (35.4-49); HEMOGLOBIN 9.6 GM/dL (11.7-16.9); LYMPH % 15.6 % (8-40); MCH 31.6 pg (25.7-33.7); MEAN CELL VOLUME 92.8 fl (80-96); MEAN PLT VOLUME 7.9 fl (7.5-11.1); MONO % 10.6 % (3.8-10.2); NEUT % 70.2 % (42.8-82.8); PLATELET COUNT 244 10^3/uL (134-434); RBC 3.03 M/mm3 (4.00-5.60); RDW 15.3 % (11.9-15.9); WHITE BLOOD COUNT 6.6 K/mm3 (4.0-10.0)
[2022-05-12 10:08] LABS: ALBUMIN 1.8 g/dl (3.4-5.0); CALCIUM 8.2 mg/dL (8.5-10.1)
[2022-05-12 10:09] LABS: BILIRUBIN,TOTAL 2.7 mg/dL (0.2-1); BLOOD UREA NITROGEN 61.1 mg/dL (7-18); MAGNESIUM 1.9 mg/dL (1.8-2.4)
[2022-05-12] MEDS: PANTOPRAZOLE SODIUM 40 MG VIAL IVPUSH SCH (10:09)
[2022-05-12] MEDS: metoPROLOL SUCCINATE 25 MG TAB.SR.24H (FP) PO SCH (10:09)
[2022-05-12] MEDS: HEPARIN NA (PORCINE) 5,000 UNITS/ML 1ML VIAL SQ SCH (10:09)
[2022-05-12 10:11] LABS: TOT PROT 4.8 g/dl (6.4-8.2)
[2022-05-12 10:12] LABS: PHOSPHOROUS 3.6 mg/dL (2.5-4.9)
[2022-05-12] MEDS: LEVOTHYROXINE SODIUM 100 MCG VIAL IVPUSH SCH (11:29)
[2022-05-12] MEDS: ARIPiprazole 10 MG TABLET PO SCH (11:29)
[2022-05-12] MEDS ORDERED: DEXTROSE 5%-WATER - 1,000 ML IV SCH (11:30)
[2022-05-12] MEDS ORDERED: MEROPENEM 1 GM in DEXTROSE 5%-WATER 100 ML IVPB SCH ×2 (12:00→12:15)
[2022-05-12 18:21] VITALS: BP 130/73; PULSE 96; RESP 24; TEMP 97.6
== END 2022-05-12 19:42 | disposition short-term general hospital (02) | DRG 871 ==
LOC: SUPCPDRO 11:43 → FER 11:43 → J4W 05-04 00:30 → JICU 05-04 18:27 → J7W 05-10 17:34 → J4W 05-12 00:13
PROVIDERS: ADMIT Family Medicine; ATTEND Family Medicine
PROC: 05HM33Z Insertion of Infusion Device into Right Internal Jugular Vein, Percutaneous Approach (ICD-10-PCS; principal; 2022-05-04)
PROC: B543ZZA Ultrasonography of Right Jugular Veins, Guidance (ICD-10-PCS; 2022-05-04)
PROC: 5A1945Z Respiratory Ventilation, 24-96 Consecutive Hours (ICD-10-PCS; 2022-05-04)
PROC: 0BH17EZ Insertion of Endotracheal Airway into Trachea, Via Natural or Artificial Opening (ICD-10-PCS; 2022-05-04)
PROC: 4A133B1 Monitoring of Arterial Pressure, Peripheral, Percutaneous Approach (ICD-10-PCS; 2022-05-04)
PROC: 4A133J1 Monitoring of Arterial Pulse, Peripheral, Percutaneous Approach (ICD-10-PCS; 2022-05-04)
PROC: 05HN33Z Insertion of Infusion Device into Left Internal Jugular Vein, Percutaneous Approach (ICD-10-PCS; 2022-05-05)
PROC: B544ZZA Ultrasonography of Left Jugular Veins, Guidance (ICD-10-PCS; 2022-05-05)
PROC: 30233N1 Transfusion of Nonautologous Red Blood Cells into Peripheral Vein, Percutaneous Approach (ICD-10-PCS; 2022-05-05)
DX: A41.89 Other specified sepsis (principal); I21.4 Non-ST elevation (NSTEMI) myocardial infarction; J96.01 Acute respiratory failure with hypoxia; R65.21 Severe sepsis with septic shock; N15.1 Renal and perinephric abscess; I46.9 Cardiac arrest, cause unspecified; K72.00 Acute and subacute hepatic failure without coma; N17.9 Acute kidney failure, unspecified; E87.2 Acidosis; N13.6 Pyonephrosis; D61.818 Other pancytopenia; K92.2 Gastrointestinal hemorrhage, unspecified; E87.0 Hyperosmolality and hypernatremia; N12 Tubulo-interstitial nephritis, not specified as acute or chronic; N28.1 Cyst of kidney, acquired; N18.9 Chronic kidney disease, unspecified; E66.9 Obesity, unspecified; Z68.33 Body mass index [BMI] 33.0-33.9, adult; D50.9 Iron deficiency anemia, unspecified; F20.9 Schizophrenia, unspecified; I12.9 Hypertensive chronic kidney disease with stage 1 through stage 4 chronic kidney disease, or unspecified chronic kidney disease; E78.5 Hyperlipidemia, unspecified; K00.9 Disorder of tooth development, unspecified; R77.8 Other specified abnormalities of plasma proteins; I45.10 Unspecified right bundle-branch block; R00.0 Tachycardia, unspecified; D72.829 Elevated white blood cell count, unspecified; R31.9 Hematuria, unspecified; Z85.038 Personal history of other malignant neoplasm of large intestine
CPT/HCPCS: 0241U-QW; 36415; 36430; 36600; 71045-TC-FY; 74176-TC; 76775-TC; 80048; 80053; 80061; 80076; 81003; 81015; 82272; 82550; 82553; 82570; 82728; 82803; 82962; 83036; 83540; 83550; 83605; 83735; 83880; 84100; 84156; 84300; 84484; 84550; 85025; 85027; 85610; 85730; 86803; 86850; 86900; 86901; 86922; 87040; 87070; 87077; 87086; 87205; 87340; 93005; 93010; 93306-TC; 93970-TC; 94002; 94640; 97116-GP; 97161-GP; 99291; C9803-CS; G0480; J1644; J3490; P9058; U0003; U0005